=== PATIENT | female | born 1965 | race Caucasian/White ===

== ENCOUNTER 2018-12-09 23:40 | Inpatient (IN) | payer MEDICAID, OTHER ==
[~2018-12-09] VITALS: Ht 160 cm; Wt 69.1 kg
[~2018-12-09 23:40] MED LIST: ACYC200CA PO; ACYC5OIN TOP; CYCL10TA PO; FENT25PA TOP; FISH1000 PO; PERCOCET PO; PROBCAP14 PO; SILV-4 TOP; TRIA1CR80 TOP; VITA-110 PO; VITMTA PO
[2018-12-10] MEDS ORDERED: LORazepam 2 MG TAB PO PRN
[2018-12-10] MEDS ORDERED: ACETAMINOPHEN TAB 650MG DOSE (2X325MG) PO PRN
[2018-12-10] MEDS ORDERED: MAALOX 30 ML SUSP *UDC PO PRN
[2018-12-10] MEDS ORDERED: OLANZapine ORAL DISINTEGRATING TAB 5MG PO PRN
[2018-12-10] MEDS ORDERED: MOM 30ML SUSPENSION UDC PO PRN
[2018-12-10] MEDS ORDERED: TRIAMCINOLONE ACET 0.1% CREAM 15 GM TOP PRN
[2018-12-10 00:33] VITALS: BP 158/88
[2018-12-10 00:35] VITALS: BP 158/88
[2018-12-10] MEDS: LEVALBUTEROL 1.25 MG/0.5 ML CONCENTRATE NEB INH SCH ×6 (00:43→19:10)
[2018-12-10] MEDS ORDERED: TRIAMCINOLONE ACET 0.1% CREAM 80 GM TOP PRN (01:30)
[2018-12-10 06:19] VITALS: BP 141/86
[2018-12-10] MEDS: THIAMINE 100 MG TAB PO SCH ×2 (08:08→20:49)
[2018-12-10] MEDS: MULTIVITAMINS/MINERALS THERAP 1 TAB PO SCH (08:08)
[2018-12-10] MEDS: FOLIC ACID 1 MG TAB PO SCH (08:08)
[2018-12-10] MEDS: ACYCLOVIR 5% OINT 15GM TOP SCH ×2 (08:09→20:50)
[2018-12-10 12:00] VITALS: BP 136/83
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
[2018-12-10 18:00] VITALS: BP 130/85
[2018-12-10] MEDS: traZODone 50 MG TAB PO PRN (20:49)
[2018-12-10 21:26] VITALS: BP 130/85
[2018-12-11] MEDS: LEVALBUTEROL 1.25 MG/0.5 ML CONCENTRATE NEB INH SCH ×6 (04:00→20:00)
[2018-12-11 06:00] VITALS: BP 137/72
[2018-12-11] MEDS: MULTIVITAMINS/MINERALS THERAP 1 TAB PO SCH (08:26)
[2018-12-11] MEDS: ACYCLOVIR 5% OINT 15GM TOP SCH ×2 (08:26→20:24)
[2018-12-11] MEDS: FLUoxetine 10 MG CAP PO SCH (08:26)
[2018-12-11] MEDS: THIAMINE 100 MG TAB PO SCH ×2 (08:26→20:24)
[2018-12-11] MEDS: FOLIC ACID 1 MG TAB PO SCH (08:27)
[2018-12-11 10:00] VITALS: BP 132/80
[2018-12-11 10:11] VITALS: BP 132/80
--- NOTE | 2018-12-11 14:23 | MHHPE ---
DATE OF ADMISSION: 12/10/2018 CHIEF COMPLAINT: Feels stressed. SUBJECTIVE: [id number]. She is . Has two children, a son and a daughter. Son who she keeps in contact with. She is estranged from her daughter. She is admitted from the medical floor, where she had been admitted, initially to the intensive care unit (ICU). She almost after an overdose of antifreeze (ethylene glycol). She had been drinking at that time as well. Has been increasingly stressed, anxious. I had seen her on the consultation service yesterday, please refer to my dictation regarding the circumstances of the hospitalization, the background history, and mental status exam at the time. Says has been in touch with some of her family, including her son. Says her boyfriend is aware she is here, and that he is in fact coming to drop a few things. 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 Says does not think that has difficulties with alcohol, other than when she drinks. MENTAL STATUS EXAMINATION: She is neat. She is cooperative though possibly a bit guarded. She is coherent. No agitation. No psychomotor retardation. Affect is a bit broader than when I saw her yesterday. She displays no abnormal movements. She denies any active suicidal thoughts. No homicidal ideas or intents. No evidence of any psychosis. Her cognition is grossly intact. Does not appear to be internally preoccupied. Judgment and insight remain questionable. ASSESSMENT: Other specified anxiety disorder. Alcohol use disorder. Status post ethylene glycol poisoning. Has been anxious, stressed, and various factors have contributed to it, as indicated in yesterday's examination. The other concern is that she probably minimizes her difficulties. PLAN: She is admitted to inpatient psychiatric unit, placed on relevant precautions. We will look at obtained collateral information, which I suggest would be quite important, in order to obtain a more complete picture regarding the patient. She is to be started on Prozac to help address anxiety. The risks, benefits, drawbacks, abusing it, as well as alternatives, and she understands it. She will receive a consult to medicine, and we will ask her to continuing following should it be advised. She will be encouraged to participate in activities on the unit. She will be discharged with followup when she is stable. I would anticipate a 5-7 day stay. I would also recommend that she is discharged to an alcohol treatment program, in addition to seeing a therapist and psychiatrist. Further recommendations will be made depending on the clinical picture. The assessment took 30 minutes. VITAL SIGNS: Blood pressure 130/8, pulse 70, temperature 99. MTDD
[2018-12-11 18:00] VITALS: BP 122/79
[2018-12-11] MEDS: traZODone 50 MG TAB PO PRN (20:25)
[2018-12-11 21:51] VITALS: BP 122/79
[2018-12-12] MEDS: LEVALBUTEROL 1.25 MG/0.5 ML CONCENTRATE NEB INH SCH ×7 (04:00→23:34)
[2018-12-12 06:16] VITALS: BP 126/67
[2018-12-12] MEDS: MULTIVITAMINS/MINERALS THERAP 1 TAB PO SCH (09:02)
[2018-12-12] MEDS: THIAMINE 100 MG TAB PO SCH ×2 (09:02→21:31)
[2018-12-12] MEDS: FOLIC ACID 1 MG TAB PO SCH (09:02)
[2018-12-12] MEDS: FLUoxetine 10 MG CAP PO SCH (09:02)
[2018-12-12] MEDS: ACYCLOVIR 5% OINT 15GM TOP SCH ×2 (09:03→21:32)
--- NOTE | 2018-12-12 09:51 | MHIPN ---
DATE: 12/10/2018 CHIEF COMPLAINT: Says feels better. SUBJECTIVE: Seen for follow-up. Indicates feels better, had a fairly good night, says slept and was up for another few, before she started the day. Says visit with her son went well. 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 The patient would want contact with her daughter, but does not want daughter trying to "fix her." Denies any cravings for alcohol. Says has had contact with her partner on the phone. MENTAL STATUS EXAMINATION: Neat, cooperative. Less guarded. She is coherent. Affect is broader. Denies any thoughts of harming herself or anyone else. She does not display any evidence of psychosis at present. Her cognition is grossly intact. Judgment possibly improved, insight poor to fair. ASSESSMENT: Other specified anxiety disorder. Rule out major depressive disorder. Alcohol use disorder. PLAN: Continue current care, has just been started on Prozac. She is encouraged to participate in activities on the unit. I would suggest obtaining collateral information as well. She will be seeing the treatment team, as well as the psychiatrist tomorrow, and discharge planning should include her seeing a substance abuse counselor at a suitable facility. VITAL SIGNS: Blood pressure 132/80, pulse 72, temperature 98.1. Substance abuse treatment, and arranging for that, will be important upon discharge.
--- NOTE | 2018-12-12 14:41 | MHIPNPDOC ---
[facility] Progress Note Progress Note DATE OF SERVICE: 12/12/18 HISTORY: As per Dr. Collier: "CHIEF COMPLAINT: Feels stressed. SUBJECTIVE: [id number]. She is . Has two children, a son and a daughter. Son who she keeps in contact with. She is estranged from her daughter. She is admitted from the medical floor, where she had been admitted, initially to the intensive care unit (ICU). She almost after an overdose of antifreeze (ethylene glycol). She had been drinking at that time as well. Has been increasingly stressed, anxious". VITAL SIGNS: See below. NEW TEST RESULTS: See below CURRENT MEDICATIONS: See below. MENTAL STATUS EXAMINATION: Patient is a 53 year old female, who is alert, dressed in personal clothes, cooperative. Speech: Is fluent and spontaneous, normal rate, tone and volume. Language skills are good. Thought processes including: linear, coherent. Thought content: depressive thoughts about her children not making contact with her, especially her daughter and her multiple losses. Abstract reasoning, and computation: good Description of associations: good Description of abnormal or psychotic thoughts: . Judgment: improving Insight: improving Orientation: x 3 Recent and remote memory: intact Attention span and concentration: good. Language: normal. Fund of knowledge: average. Mood: anxious, sad. Affect: congruent, full, reactive, appropriate. DIAGNOSES: Other specified anxiety disorder. Rule out major depressive disorder. Alcohol use disorder. ASSESSMENT: Patient is sad because carisa has lost mostly all her family through and through separation, she from her and her daughter doesn't get in touch with her because she is her father's baby and he gives her all sort of material things. 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 She says she took the antifreeze in an impulse, she was taking the garbage out, went in, was watching "a stupid show" where they were talking about it and she went ahead and took it. she says that there's alcoholism in her genes because she has Turkmen blood, and she knows they are presiposed to alcohol use. she has been feeling lonely. MANAGEMENT PLAN: Will increase fluoxetine to 20 mgs Po daily TIME SPENT: 20 minutes. Vital Signs Vital Signs Date Time Temp Pulse Resp B/P (MAP) Pulse Ox O2 Delivery O2 Flow Rate FiO2 12/12/18 06:16 98.1 62 14 126/67 (86) Room Air Current Medications Current Medications Acetaminophen (Tylenol Tab) 650 mg Q6HP PRN PO HEADACHE or DISCOMFORT; Start 12/10/18 at 00:00 Acyclovir (Zovirax) 1 dose BID TOP Last administered on 12/12/18at 09:03; Start 12/10/18 at 09:00 Al Hydrox/Mg Hydrox/Simethicone (Mylanta) 30 ml Q4HP PRN PO HEARTBURN/INDIGESTION; Start 12/10/18 at 00:00 Fluoxetine HCl (PROzac) 10 mg DAILY PO Last administered on 12/12/18at 09:02; Start 12/11/18 at 09:00 Folic Acid (Folic Acid) 1 mg DAILY PO Last administered on 12/12/18at 09:02; Start 12/10/18 at 09:00 Levalbuterol HCl (Xopenex Neb) 1.25 mg RQ4H INH ; Start 12/10/18 at 00:00 Lorazepam (Ativan) 2 mg ASDIRECTED PRN PO SEE PROTOCOL; Start 12/10/18 at 00:00 Magnesium Hydroxide (Milk Of Magnesia) 30 ml DAILYPRN PRN PO CONSTIPATION; Start 12/10/18 at 00:00 Multivitamins (Theragram-M) 1 tab DAILY PO Last administered on 12/12/18at 09:02; Start 12/10/18 at 09:00 Olanzapine (ZyPREXA ZYDIS) 5 mg Q6HP PRN PO ANXIETY/AGITATION; Start 12/10/18 at 00:00 Thiamine HCl (Thiamine HCl) 100 mg BID PO Last administered on 12/12/18at 09:02; Start 12/10/18 at 09:00; Stop 12/13/18 at 08:59 Trazodone HCl (Desyrel) 50 mg QHSP PRN PO INSOMNIA Last administered on 12/11/18at 20:25; Start 12/10/18 at 00:00 Triamcinolone Acetonide (Kenalog 0.1% Cream) 1 dose BIDP PRN TOP ITCHING; Start 12/10/18 at 00:00; Stop 12/10/18 at 01:25; Status DC Triamcinolone Acetonide (Kenalog 0.1% Cream) 1 dose BIDP PRN TOP ITCHING; Start 12/10/18 at 01:30 Allergies Coded Allergies: No Known Allergies (Verified , 12/06/18) BASILIO QUINTANILLA MD Dec 12, 2018 14:41
[2018-12-12 18:00] VITALS: BP 137/84
[2018-12-12 20:00] VITALS: BP 136/74
[2018-12-12] MEDS: traZODone 50 MG TAB PO PRN (21:32)
[2018-12-13] MEDS: LEVALBUTEROL 1.25 MG/0.5 ML CONCENTRATE NEB INH SCH ×2 (04:00→07:26)
[2018-12-13 06:39] VITALS: BP 129/64
[2018-12-13] MEDS: ACYCLOVIR 5% OINT 15GM TOP SCH (08:22)
[2018-12-13] MEDS ORDERED: FLUoxetine 20 MG CAP PO SCH (09:00)
--- NOTE | 2018-12-13 09:03 | HPE ---
DATE OF ADMISSION: 12/10/2018 HISTORY OF PRESENT ILLNESS: Please refer to the psychiatric history and evaluation for further details on this admission. This examination and history is intended for medical issues which may need treatment, followup or consultation on this 53-year-old female who was transferred from the intensive care unit (ICU) after having been treated for taking an overdose of antifreeze 50/50 mixture. She was intubated and subsequently extubated. She is doing well. She had a nephrology consult. Did not require dialysis. She was given fomepizole in the emergency room as a recommendation of Poison Control. Laboratory studies are stable and patient has been deemed medically stable. Discharged and admitted to inpatient mental health unit. ALLERGIES: No known drug allergies SOCIAL HISTORY: She is . ETOH - She used to drink heavily. She states that 3 years ago, she did cut back but had a drink the night of taking the antifreeze. Smokes - None. Recreational drug use - None. PAST MEDICAL HISTORY: Anxiety. Depression. She had a 03/14. She had a PAST SURGICAL HISTORY: History of breast augmentation 2012. Total hysterectomy July 2009. Anterior cruciate ligament (ACL) and repair 08/05/2017. FAMILY HISTORY: Father and mother is unknown by the patient. Father is decreased. Mother is . REVIEW OF SYSTEMS: 10-systems review was done and was unremarkable except for a healing cold sore on her lip for which she is on acyclovir. PHYSICAL EXAMINATION: 53 y cooperative female in no acute distress. Height 63, weight 67.3, blood pressure 132/80, pulse 71, temperature 98.1, respirations 16. The patient is alert and oriented times three. Pupils equal and reactive to light. Extraocular movements intact. Cornea and sclera clear. Conjunctiva normal. No facial asymmetry. Pharynx, tongue, and gums pink and moist. Small drying cold sore in her lip. Tongue is midline. Neck is supple, without lymphadenopathy. No thyromegaly. No goiter. Carotids 2+ without bruit. Chest clear to auscultation, without wheeze or retraction. Heart is regular. Abdomen benign. Bowel sounds positive. /Rectal: Not done. Extremities show equal strength. Full range of motion. no cyanosis, clubbing or edema. Peripheral pulses equal and palpable bilaterally. Skin is warm and dry. IMPRESSION AND PLAN: 1. Psychiatric: Plan per psychiatry. 2. Continue on acyclovir for cold sore. 3. No other medical issues. (BLANKS DUE TO MUFFLED IN AUDIBLE DICTATION)
[2018-12-13] MEDS ORDERED: LEVALBUTEROL 1.25 MG/0.5 ML CONCENTRATE NEB INH PRN (10:00)
[2018-12-13] MEDS ORDERED: LEVA12INH INH (12:04)
[2018-12-13] MEDS ORDERED: TRAZO50TA PO (12:04)
[2018-12-13] MEDS ORDERED: FLUO20CA19 PO (12:04)
--- NOTE | 2019-01-02 21:52 | MHDSPDOC ---
[facility] Discharge Summary Discharge Summary DATE OF ADMISSION: Dec 10, 2018 at 00:38 DATE OF DISCHARGE: Dec 13, 2018 at 14:45 DISCHARGE DIAGNOSES: Other specified anxiety disorder. Major depressive disorder, in remission Alcohol use disorder. R/O substance induced depression REASON FOR ADMISSION: As per Dr. Collier: "[id number]. She is . Has two children, a son and a daughter. Son who she keeps in contact with. She is estranged from her daughter. She is admitted from the medical floor, where she had been admitted, initially to the intensive care unit (ICU). She almost after an overdose of antifreeze (ethylene glycol). She had been drinking at that time as well. Has been increasingly stressed, anxious." CONSULTANTS INVOLVED: None TREATMENT AND PROGRESS ON THE UNIT : Upon evaluation the patient admitted that she has been depressed and that she was not feeling well prior to her admission. 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 She mentioned feeling very lonely, having lost several relatives and friends through and separations. She from her and she resents that one of her daughters doesn't get in touch with her but she gets in touch with her father and she says this is secondary to the fact that her father caters to all her wishes. 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 She said that prior to taking the antifreeze that brought her to the hospital, she had been drinking, she took the garbage out and went through the the garage were the antifreeze was. She went back inside of the house and she went to watch TV where she was watching a TV show and according to what she said, "it was a stupid show", where they were talking about different ways to commit suicide, including antifreeze poisoning. At that moment she went ahead and took the antifreeze. She said that she felt very embarrassed, ashamed about her recent impulsive action (suicide attempt with antifreeze). Patient reported that she was not suicidal, not homicidal and not psychotic at that moment. She requested to be discharged because she was getting more anxious at the inpatient mental health unit because she had to take care of her business and she couldn't do it while at the hospital. HOSPITAL COURSE: As above DISCHARGE ASSESSMENT: Patient was not homicidal, not suicidal and not psychotic at the time of her discharge MENTAL STATUS EXAMINATION ON DISCHARGE: Patient is a 53 year old female, who is alert, dressed in personal clothes, cooperative. Speech: Is fluent and spontaneous, normal rate, tone and volume. Language skills are good. Thought processes including: linear, coherent. Thought content: depressive thoughts about her children not making contact with her, especially her daughter and her multiple losses. She was goal-directed, goal orientated, she wanted to be successful and she says she was going to work hard in in her business to accomplish her goals. Abstract reasoning, and computation: good Description of associations: good Description of abnormal or psychotic thoughts: Denied homicidal ideation, denied suicidal ideation, denied auditory and visual hallucinations and denied thought delusions. Judgment: improving Insight: improving Orientation: x 3 Recent and remote memory: intact Attention span and concentration: good. Language: normal. Fund of knowledge: average. Mood: Less anxious and less depressed Affect: congruent, full, reactive, appropriate. MEDICATIONS ON DISCHARGE: Scheduled Acyclovir (Acyclovir) 5 % Oin, 0 DOSE TOP BID for 10 Days, #1 Fluoxetine Hcl (Fluoxetine HCl) 20 Mg Cap, 20 MG PO DAILY for depression , #7 Scheduled PRN Levalbuterol Hydrochloride (Xopenex Concentrate) 1.25 Mg/0.5 Ml Neb, 1.25 MG INH Q4HP PRN for SOB/WHEEZING, #1 Trazodone HCl (Trazodone HCl) 50 Mg Tab, 50 MG PO QHSP PRN for INSOMNIA, #7 Triamcinolone Acet (Triamcinolone Acetonide 0.1% Crm) 1 Dose/80 Gm Cream, 0 DOSE TOP BIDP PRN for ITCHING for 5 Days, #1 PLAN/FOLLOWUP ARRANGEMENTS: Follow Up Care Education Label * Medical * Medical Follow Up DR. LOAN COLLIER * Established With This Provider Yes * Date Dec 14, 2018 * Time 08:45 * Follow Up Care Education Label * Mental Health Appt 1 * Mental Health [facility] * Established With This Provider No NEW PATIENT APPOINTMENT * Therapist ROVERTO OLIVARES * Date Dec 16, 2018 * Time 11:00 * Follow Up Care Education Label * Smoking Cessation * Mental Health [facility] * Smoking Cessation [facility] Smoking Cessation * Additional information see attached form The amount of time spent in the coordination of care for this patient was approximately 30 minutes. Medications Scheduled Acyclovir (Acyclovir) 5 % Oin, 0 DOSE TOP BID for 10 Days, #1 Fluoxetine Hcl (Fluoxetine HCl) 20 Mg Cap, 20 MG PO DAILY for depression , #7 Scheduled PRN Levalbuterol Hydrochloride (Xopenex Concentrate) 1.25 Mg/0.5 Ml Neb, 1.25 MG INH Q4HP PRN for SOB/WHEEZING, #1 Trazodone HCl (Trazodone HCl) 50 Mg Tab, 50 MG PO QHSP PRN for INSOMNIA, #7 Triamcinolone Acet (Triamcinolone Acetonide 0.1% Crm) 1 Dose/80 Gm Cream, 0 DOSE TOP BIDP PRN for ITCHING for 5 Days, #1 Allergies Coded Allergies: No Known Allergies (Verified , 12/06/18) BASILIO QUINTANILLA MD Jan 02, 2019 21:36
== END 2018-12-13 14:45 | disposition home or self-care (01) | DRG 756 ==
LOC: M PSY 12-10 00:38
PROVIDERS: ADMIT Psychiatry & Neurology Psychiatry; ATTEND Psychiatry & Neurology Psychiatry
DX: F41.8 Other specified anxiety disorders (principal); F10.14 Alcohol abuse with alcohol-induced mood disorder; F32.5 Major depressive disorder, single episode, in full remission; Z91.5 Personal history of self-harm; Z62.810 Personal history of physical and sexual abuse in childhood; Z63.4 Disappearance and death of family member; Z62.820 Parent-biological child conflict

== ENCOUNTER → 2019-01-03 | Outpatient (CLI) | payer OTHER, MEDICAID ==
[~2019-01-03] MED LIST changes: +FLUO20CA19 PO; +LEVA12INH INH; +TRAZO50TA PO
[2019-01-03 12:21] LABS: HEMATOCRIT 42.4 % (36.0-47.0); HEMOGLOBIN 14.4 g/dl (12.0-15.5); MEAN CORPUSCULAR HEMOGLOBIN 30.2 pg (27.0-33.0); MEAN CORPUSCULAR VOLUME 88.9 fl (80.0-96.0); PLATELET COUNT, AUTOMATED 295 10^3/uL (150-450); RED BLOOD COUNT 4.77 10^6/uL (4.00-5.40); WHITE BLOOD COUNT 5.5 10^3/uL (4.0-10.0)
[2019-01-03 12:55] LABS: HEMOGLOBIN A1c 5.5 %
[2019-01-03 13:00] LABS: ALT/SGPT 26 U/L (12-78); BILIRUBIN,TOTAL 0.6 MG/DL (0.2-1.0); BLOOD UREA NITROGEN 16 MG/DL (7-18); CALCIUM LEVEL 9.1 MG/DL (8.5-10.1); CARBON DIOXIDE LEVEL 26 MEQ/L (21-32); CHLORIDE LEVEL 108 MEQ/L (98-107); CHOLESTEROL LEVEL 263 MG/DL (<200); CHOLESTEROL RISK RATIO 2.827 (<5); CREATININE FOR GFR 0.77 MG/DL (0.55-1.30); GLOMERULAR FILTRATION RATE > 60.0 (>51); GLUCOSE, FASTING 84 MG/DL (70-100); HDL CHOLESTEROL 93 MG/DL (>40); LDL CHOLESTEROL 155 MG/DL (<100); NON-HDL-C 170 MG/DL; SODIUM LEVEL 140 MEQ/L (136-145); TOTAL 25(OH) VITAMIN D 44.8 NG/ML (30.0-100.0); TOTAL PROTEIN 6.8 GM/DL (6.4-8.2); TRIGLYCERIDES LEVEL 77 MG/DL (<150)
== END ==
LOC: M LAB 11:41
PROVIDERS: ATTEND Family Medicine
DX: D64.9 Anemia, unspecified (principal); R53.83 Other fatigue; E03.9 Hypothyroidism, unspecified

== ENCOUNTER 2019-06-06 14:50 | Inpatient (IN) | payer OTHER, MEDICAID ==
[~2019-06-06] VITALS: Ht 165.1 cm; Wt 73.5 kg
[~2019-06-06 14:50] MED LIST changes: +ACYC1CAP20 PO; -ACYC200CA PO; +FENT25DI33 TOP; -FENT25PA TOP; +TRAZ1TAB10 PO; -TRAZO50TA PO
[2019-06-06 15:26] LABS: BASO % 0.2 % (0.0-1.0); HEMATOCRIT 43.4 % (36.0-47.0); HEMOGLOBIN 15.2 g/dl (12.0-15.5); LYMPH # 0.6 10^3/uL (1.5-4.5); LYMPH % 2.6 % (24.0-44.0); MEAN CORPUSCULAR HEMOGLOBIN 30.5 pg (27.0-33.0); MEAN CORPUSCULAR VOLUME 87.1 fl (80.0-96.0); MONO # 0.9 10^3/uL (0.0-0.8); MONO % 4.1 % (0.0-5.0); NEUTROPHILS # 19.2 10^3/uL (1.8-7.7); NEUTROPHILS % 92.4 % (36.0-66.0); PLATELET COUNT, AUTOMATED 302 10^3/uL (150-450); RED BLOOD COUNT 4.98 10^6/uL (4.00-5.40); WHITE BLOOD COUNT 20.8 10^3/uL (4.0-10.0)
[2019-06-06 15:45] LABS: AMPHETAMINES LEVEL URINE NEGATIVE (NEGATIVE); BARBITURATES URINE NEGATIVE (NEGATIVE); BENZODIAZEPINES URINE NEGATIVE (NEGATIVE); CANNABINOIDS URINE NEGATIVE (NEGATIVE); COCAINE METABOLITE URINE NEGATIVE (NEGATIVE); METHADONE URINE NEGATIVE (NEGATIVE); OPIATES URINE NEGATIVE (NEGATIVE); PHENCYCLIDINE URINE NEGATIVE (NEGATIVE)
[2019-06-06 15:56] LABS: ACETAMINOPHEN LEVEL < 2.0 UG/ML (10.0-30.0); ALBUMIN 4.6 GM/DL (3.2-5.2); ALT/SGPT 36 U/L (12-78); BILIRUBIN,DIRECT 0.1 MG/DL (0.0-0.2); BILIRUBIN,TOTAL 0.4 MG/DL (0.2-1.0); BLOOD UREA NITROGEN 19 MG/DL (7-18); CALCIUM LEVEL 8.3 MG/DL (8.5-10.1); CARBON DIOXIDE LEVEL 17 MEQ/L (21-32); CHLORIDE LEVEL 104 MEQ/L (98-107); CPK CREATINE PHOSPHOKINASE 388 U/L (26-192); ETHYL ALCOHOL (ETHANOL) < 0.003 % (0.000-0.010); GLUCOSE, FASTING 134 MG/DL (70-100); POTASSIUM SERUM 3.6 MEQ/L (3.5-5.1); SALICYLATE LEVEL < 1.7 MG/DL (5.0-30.0); SODIUM LEVEL 138 MEQ/L (136-145); TOTAL PROTEIN 7.8 GM/DL (6.4-8.2)
[2019-06-06] MEDS ORDERED: NS 1,000 ML IV SCH (16:06)
[2019-06-06] MEDS ORDERED: ONDANSETRON 4MG/2ML VIAL (J2405) IV ONE (16:15)
[2019-06-06 16:39] LABS: CK-MB VALUE MASS 23.7 NG/ML (<3.6); MB/CK RELATIVE INDEX 6.11 (< OR =4); TROPONIN I 3.87 NG/ML (< 0.10)
[2019-06-06] MEDS ORDERED: THIAMINE HCL 200 MG/2 ML VIAL (J3411) IV ONE (16:45)
[2019-06-06 16:58] LABS: LITHIUM LEVEL < 0.20 MEQ/L (0.60-1.20)
[2019-06-06 16:58] LABS: VENOUS HCO3 17.3 MEQ/L (23.0-27.0); VENOUS O2 SATURATION 79.6 % (60.0-80.0); VENOUS PH 7.352 UNITS (7.330-7.430); VENOUS STANDARD HCO3 18.5 MEQ/L; VENOUS TOTAL CO2 18.3 MEQ/L (24.0-28.0)
--- NOTE | 2019-06-06 17:10 | REP ---
Head CT without contrast: History: Altered mental status. Comparison study: March 06, [address] findings: Bone window settings demonstrate an intact bony calvarium. There is no evidence of skull fracture or incidental bony calvarial lesion. The visualized paranasal sinuses appear clear. No intraorbital abnormality is seen. On soft tissue window setting images; the lateral, third, and fourth ventricles are normal in size and position. Hamilton-white differentiation pattern is normal above and below the tentorium. There are is no evidence of intracranial hemorrhage. No mass, edema, infarction, or midline shift is seen. No extra-axial fluid collection is appreciated. Impression: Negative noncontrast head CT. Electronically Signed by Gilberto Motta MD 06/06/2019 05:02 P
[2019-06-06 17:19] LABS: CALCIUM LEVEL 7.9 MG/DL (8.5-10.1); CREATININE FOR GFR 1.47 MG/DL (0.55-1.30); GLOMERULAR FILTRATION RATE 39.7 (>51); POTASSIUM SERUM 3.5 MEQ/L (3.5-5.1)
--- NOTE | 2019-06-06 17:43 | REP ---
CHEST, SINGLE VIEW: Single view of the chest is performed and compared to prior study of 12/06/2018. Mildly prominent interstitial markings in the lung bases are stable with no acute infiltrate. Heart is normal in size. Mediastinal silhouette is unchanged. IMPRESSION: Mild stable chronic findings without acute infiltrate. Electronically Signed by Deandre Hamilton MD 06/09/2019 10:04 A
[2019-06-06] MEDS ORDERED: NS 1,000 ML IV ONE (18:00)
[2019-06-06] MEDS ORDERED: VITAD1000T PO (18:45)
[2019-06-06] MEDS ORDERED: VITATAB73 PO (18:45)
[2019-06-06] MEDS ORDERED: VITA100018 PO (18:45)
[2019-06-06 19:46] LABS: CK-MB VALUE MASS 22.4 NG/ML (<3.6); MB/CK RELATIVE INDEX 5.48 (< OR =4); TROPONIN I 3.56 NG/ML (< 0.10)
[2019-06-06] MEDS ORDERED: IBUP-1022 PO (20:13)
[2019-06-06] MEDS ORDERED: PROT1TAB2 PO (20:13)
[2019-06-06] MEDS ORDERED: LORazepam 2 MG TAB PO PRN (22:45)
[2019-06-06] MEDS ORDERED: ONDANSETRON 4MG/2ML VIAL (J2405) IV PRN (22:45)
--- NOTE | 2019-06-06 22:49 | HPEPDOC ---
General Date of Admission Jun 06, 2019 at 22:15 Date of Service: Jun 06, 2019 Chief Complaint The patient is a 53-year-old female admitted with a reason for visit of Overdose. History of Present Illness 53f with hx of depression, etoh, previous suicide attempts (most recently drinking antifreeze) who presents for an apparent overdose. 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 She reports yesterday she drank 12 beers, a bottle of wine, and took a bottle alleve pm. She has been nauseous since and vomitted today prompting her to come to the ED. She reports she hasnt been drinking much recently prior to yesterday but has had etoh withdrawal in the past. She denies chest pain and sob. She admits wanting to kill herself yesterday but states today she does not want to harm herself A full ROS was performed and negative except as documented above Home Medications Scheduled Cyanocobalamin (Vitamin B-12) (Vitamin B-12) 1,000 Mcg Tablet, 1,000 MCG PO DAILY, (Reported) Vitamin B Complex (Vitamin B Complex) 1 Each Tablet, 1 TAB PO DAILY, (Reported) Vitamin D (Vitamin D3) 1,000 Unit Tablet, 1,000 UNITS PO DAILY, (Reported) Allergies Coded Allergies: No Known Allergies (Verified , 12/06/18) Family History Significant Family History: No pertinent family hx Social History * Smoker: current smoker Alcohol: heavy Drugs: denies Psychosocial History: Decreased mood, Prior suicide attempt A-FIB/CHADSVASC A-FIB History Current/History of A-Fib/PAF?: No Current PO Anticoag Therapy: No Age/Risk Factor Scoring CHADSVASC: CHADSVASC Response (Comments) Value Age Risk Factor Age < 65 years old 0 Gender Risk Factor Female 1 Hx of CHF No 0 Hx of HTN No 0 Hx of Stroke/TIA/or VTE No 0 Hx of Diabetes No 0 Hx of Vascular Disease No 0 Total 1 Physical Examination General Exam: Positive: Alert, Moderate Distress Eye Exam: Positive: PERRLA, Conjunctiva & lids normal, EOMI; Negative: Sclera icteric ENT Exam: Positive: Atraumatic, Mucous membr. moist/pink, Pharynx Normal Neck Exam: Positive: Supple; Negative: JVD, thyromegaly Chest Exam: Positive: Clear to auscultation, Normal air movement Heart Exam: Positive: Tachycardic, Regular Rhythm, Normal S1, Normal S2; Negative: Murmurs, Rubs Telemetry: Positive: Sinus, Tachycardia Abdomen Exam: Positive: Normal bowel sounds, Soft; Negative: Tenderness, Hepatospenomegaly Extremity Exam: Positive: Normal pulses; Negative: Clubbing, Cyanosis, Edema Skin Exam: Positive: Nl turgor and temperature; Negative: Breakdown, Lesion Neuro Exam: Positive: Normal Gait, Normal Speech, Cranial Nerves 3-12 NL, Reflexes 2+, Other (tremor) Psych Exam: Positive: Mental status NL, Memory Intact, Oriented x 3 Vital Signs Vital Signs Date Time Temp Pulse Resp B/P (MAP) Pulse Ox O2 Delivery O2 Flow Rate FiO2 06/06/19 22:34 100 16 93 06/06/19 20:45 122/76 (91) 06/06/19 15:17 98.4 Room Air Laboratory Data Labs 24H Laboratory Tests 2 06/06/19 15:07: Urine Amphetamines Screen NEGATIVE, Urine Benzodiazepines Screen NEGATIVE, Urine Opiates Screen NEGATIVE, Urine Methadone Screen NEGATIVE, Urine Barbiturates Screen NEGATIVE, Urine Phencyclidine Screen NEGATIVE, Urine Cocaine Metabolite Screen NEGATIVE, Urine Cannabinoids Screen NEGATIVE 06/06/19 15:13: Immature Granulocyte % (Auto) 0.7, White Blood Count 20.8H, Red Blood Count 4.98, Hemoglobin 15.2, Hematocrit 43.4, Mean Corpuscular Volume 87.1, Mean Corpuscular Hemoglobin 30.5, Mean Corpuscular Hemoglobin Concent 35.0, Red Cell Distribution Width 12.9, Platelet Count 302, Neutrophils (%) (Auto) 92.4H, Lymphocytes (%) (Auto) 2.6L, Monocytes (%) (Auto) 4.1, Eosinophils (%) (Auto) 0.0, Basophils (%) (Auto) 0.2, Neutrophils # (Auto) 19.2H, Lymphocytes # (Auto) 0.6L, Monocytes # (Auto) 0.9H, Eosinophils # (Auto) 0.0, Basophils # (Auto) 0.0, Nucleated Red Blood Cells % (auto) 0.0, Anion Gap 17H, Glomerular Filtration Rate 36.0L, Calcium Level 8.3L, Aspartate Amino Transf (AST/SGOT) 36, Alanine A minotransferase (ALT/SGPT) 36, Alkaline Phosphatase 75, Total Bilirubin 0.4, Direct Bilirubin 0.1, Total Creatine Kinase 388H, Creatine Kinase MB 23.7H, Creatine Kinase MB Relative Index 6.11H, Troponin I 3.87*H, Total Protein 7.8, Albumin 4.6, Albumin/Globulin Ratio 1.44, Thyroid Stimulating Hormone (TSH) 0.750, Salicylates Level < 1.7L, Acetaminophen Level < 2.0L, [place] Level < 0.20L, Ethyl Alcohol Level < 0.003 06/06/19 16:41: Anion Gap 13, Glomerular Filtration Rate 39.7L, Calcium Level 7.9L, Blood Gas Bicarbonate Standard 18.5, Venous Blood pH 7.352, Venous Blood Partial Pressure CO2 32.0L, Venous Blood Partial Pressure O2 43.0, Venous Blood Total Carbon Dioxide 18.3L, Venous Blood HCO3 17.3L, Venous Blood Oxygen Saturation 79.6, Venous Blood Base Excess -7.0L, Lactic Acid Level 4.0*H, Blood Urea Nitrogen 20H, Creatinine 1.47H, Sodium Level 139, Potassium Level 3.5, Chloride Level 105, Carbon Dioxide Level 21 06/06/19 19:02: Total Creatine Kinase 409H, Creatine Kinase MB 22.4H, Creatine Kinase MB Relative Index 5.48H, Troponin I 3.56*H 06/06/19 21:03: Lactic Acid Followup at 4 Hours 1.6 CBC/BMP Laboratory Tests 06/06/19 15:13 Red Blood Count 4.98, Mean Corpuscular Volume 87.1, Mean Corpuscular Hemoglobin 30.5, Mean Corpuscular Hemoglobin Concent 35.0, Red Cell Distribution Width 12.9, Neutrophils (%) (Auto) 92.4 H, Lymphocytes (%) (Auto) 2.6 L, Monocytes (%) (Auto) 4.1, Eosinophils (%) (Auto) 0.0, Basophils (%) (Auto) 0.2, Neutrophils # (Auto) 19.2 H, Lymphocytes # (Auto) 0.6 L, Monocytes # (Auto) 0.9 H, Eosinophils # (Auto) 0.0, Basophils # (Auto) 0.0 06/06/19 16:41 Calcium Level 7.9 L Assessment/Plan 53f p/w an apparent overdose apparent overdose of nsaids and diphenhydramine would not appear on our tox screen tox screen however is negative for other substances that we do screen for discussed with poison control who suggests n/v, acidosis, and dale is from naproxen and tachycardia likely from diphenhydramine they also at this point only recommend a 6 hour observation which has already been accomplished in the ED However given the leukocytosis, dale, resolved lactic acidosis, and abnl ekg with elevated troponins I will be admitting to PCU psych to be consulted in am 1:1 suicide observation Leukocytosis/lactic acidosis possibly reactive continue hydration check UA recheck in am cardiac ekg with diffuse t wave inversions troponin elevated but downtrending no cardiac symptoms will check echocardiogram in am ER discussed with cardiology Dr Jha dale suspect due to nsaids continue hydration check ua protein, lytes Plan / VTE VTE Prophylaxis Ordered?: Yes SANDY HERRERA MD Jun 06, 2019 22:49
[2019-06-06] MEDS: LR 1,000 ML IV SCH (23:12)
[2019-06-06] MEDS: FAMOTIDINE IV BAG 20 MG in APPROPRIATE DILUENT 1 EA IV SCH (23:16)
[2019-06-07] VITALS (7 sets, daily range): BP systolic 98–121; BP diastolic 59–72
--- NOTE | 2019-06-07 03:37 | ECGEPIP ---
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
--- NOTE | 2019-06-07 03:39 | ECGEPIP ---
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
[2019-06-07 06:12] LABS: HEMATOCRIT 37.5 % (36.0-47.0); HEMOGLOBIN 12.7 g/dl (12.0-15.5); MEAN CORPUSCULAR HEMOGLOBIN 30.5 pg (27.0-33.0); MEAN CORPUSCULAR HGB CONC 33.9 g/dl (32.0-36.5); MEAN CORPUSCULAR VOLUME 90.1 fl (80.0-96.0); PLATELET COUNT, AUTOMATED 220 10^3/uL (150-450); RED BLOOD COUNT 4.16 10^6/uL (4.00-5.40); WHITE BLOOD COUNT 10.9 10^3/uL (4.0-10.0)
[2019-06-07] MEDS: LR 1,000 ML IV SCH ×2 (06:29→15:49)
[2019-06-07 06:49] LABS: ALBUMIN 3.2 GM/DL (3.2-5.2); BILIRUBIN,TOTAL 0.4 MG/DL (0.2-1.0); CALCIUM LEVEL 7.1 MG/DL (8.5-10.1); CREATININE FOR GFR 1.24 MG/DL (0.55-1.30); GLOMERULAR FILTRATION RATE 48.4 (>51); POTASSIUM SERUM 3.1 MEQ/L (3.5-5.1); TROPONIN I 2.66 NG/ML (< 0.10)
[2019-06-07 07:48] LABS: SODIUM,RANDOM URINE 47 MEQ/L
[2019-06-07 07:55] LABS: CREATININE,RANDOM URINE 48.5 MG/DL; TOTAL PROTEIN,RANDOM URINE 34.9 MG/DL (0.0-12.0)
[2019-06-07] MEDS ORDERED: POTASSIUM CHLORIDE 10 MEQ SR TABLET PO ONE (08:00)
[2019-06-07] MEDS: MULTIVITAMINS/MINERALS THERAP 1 TAB PO SCH (08:46)
[2019-06-07] MEDS: FOLIC ACID 1 MG TAB PO SCH (08:46)
[2019-06-07] MEDS: THIAMINE 100 MG TAB PO SCH ×2 (08:46→20:21)
[2019-06-07] MEDS: HEPARIN SOD (PORCINE) 5000 UNITS/ML VIAL SC SCH ×2 (08:47→20:22)
[2019-06-07] MEDS: FAMOTIDINE IV BAG 20 MG in APPROPRIATE DILUENT 1 EA IV SCH ×2 (11:00→22:52)
--- NOTE | 2019-06-07 11:36 | IPNPDOC ---
Date Seen The patient was seen on 06/07/19. Progress Note SUBJECTIVE: 53 Y female, history of depression and suicidal attempt in the past admitted for drug overdose and suicidal attempt again no events overnight Review of systems no fever no chills no GODINEZ no chest pain no abdominal pain no diarrhea OBJECTIVE PHYSICAL EXAMINATION: VITAL SIGNS: Please see below. GENERAL: AA Ox3, not in acute distress, sitting in the bed and eating her breakfast; 1 to 1 sitter at bedside HEENT: Atraumatic CARDIOVASCULAR: S1S2, regular, no murmur RESPIRATORY: clear, no wheezing, no rales ABDOMINAL: soft BS positive, non tender EXTREMITIES: non edema NEUROLOGICAL: non focal PSYCHOLOGICAL: depressed but no acute psychosis LABORATORY DATA, IMAGING STUDIES, MICROBIOLOGY: Please see below. Echocardiogram: pending ASSESSMENT AND PLAN: 1. Depression and suicidal attempt with drug overdose (nsaids and diphenhydramine) will continue supportive care will continue 1 to 1 sitter I called psych consult this AM 2. Elevated troponin, she does not have risk factors for CAD, no chest pain consulted Braider Setter in ER and Dr Jha did not recommend for cardiac cath per admission notes now trending down; could be related to stress induced cardiomyopathy 3. leukocytosis/lactic acidosis, No evidence of infection and will continue to monitor 4. acute renal failure, will continue IVF and follow Cr in AM VS, I&O, 24H, Anand Vital Signs/I&O Vital Signs Date Time Temp Pulse Resp B/P (MAP) Pulse Ox O2 Delivery O2 Flow Rate FiO2 06/07/19 08:11 99.0 96 18 133/70 (91) 98 Room Air 06/07/19 06:00 1.0 I&O- Last 24 Hours up to 6 AM 06/07/19 06:00 Intake Total 1000 ml Balance 1000 ml Laboratory Data 24H LABS Laboratory Tests 2 06/06/19 15:07: Urine Amphetamines Screen NEGATIVE, Urine Benzodiazepines Screen NEGATIVE, Urine Opiates Screen NEGATIVE, Urine Methadone Screen NEGATIVE, Urine Barbiturates Screen NEGATIVE, Urine Phencyclidine Screen NEGATIVE, Urine Cocaine Metabolite Screen NEGATIVE, Urine Cannabinoids Screen NEGATIVE 06/06/19 15:13: Immature Granulocyte % (Auto) 0.7, White Blood Count 20.8H, Red Blood Count 4.98, Hemoglobin 15.2, Hematocrit 43.4, Mean Corpuscular Volume 87.1, Mean Corpuscular Hemoglobin 30.5, Mean Corpuscular Hemoglobin Concent 35.0, Red Cell Distribution Width 12.9, Platelet Count 302, Neutrophils (%) (Auto) 92.4H, Lymphocytes (%) (Auto) 2.6L, Monocytes (%) (Auto) 4.1, Eosinophils (%) (Auto) 0.0, Basophils (%) (Auto) 0.2, Neutrophils # (Auto) 19.2H, Lymphocytes # (Auto) 0.6L, Monocytes # (Auto) 0.9H, Eosinophils # (Auto) 0.0, Basophils # (Auto) 0.0, Nucleated Red Blood Cells % (auto) 0.0, Anion Gap 17H, Glomerular Filtration Rate 36.0L, Calcium Level 8.3L, Aspartate Amino Transf (AST/SGOT) 36, Alanine Aminotransferase (ALT/SGPT) 36, Alkaline Phosphatase 75, Total Bilirubin 0.4, Direct Bilirubin 0.1, Total Creatine Kinase 388H, Creatine Kinase MB 23.7H, Creatine Kinase MB Relative Index 6.11H, Troponin I 3.87*H, Total Protein 7.8, Albumin 4.6, Albumin/Globulin Ratio 1.44, Thyroid Stimulating Hormone (TSH) 0.750, Salicylates Level < 1.7L, Acetaminophen Level < 2.0L, [place] Level < 0.20L, Ethyl Alcohol Level < 0.003 06/06/19 16:41: Anion Gap 13, Glomerular Filtration Rate 39.7L, Calcium Level 7.9L, Blood Gas Bicarbonate Standard 18.5, Venous Blood pH 7.352, Venous Blood Partial Pressure CO2 32.0L, Venous Blood Partial Pressure O2 43.0, Venous Blood Total Carbon Dioxide 18.3L, Venous Blood HCO3 17.3L, Venous Blood Oxygen Saturation 79.6, Venous Blood Base Excess -7.0L, Lactic Acid Level 4.0*H, Blood Urea Nitrogen 20H, Creatinine 1.47H, Sodium Level 139, Potassium Level 3.5, Chloride Level 105, Carbon Dioxide Level 21 06/06/19 19:02: Total Creatine Kinase 409H, Creatine Kinase MB 22.4H, Creatine Kinase MB Relative Index 5.48H, Troponin I 3.56*H 06/06/19 21:03: Lactic Acid Followup at 4 Hours 1.6 06/07/19 05:53: Nucleated Red Blood Cells % (auto) 0.0, Anion Gap 10, Glomerular Filtration Rate 48.4L, Blood Urea Nitrogen 19H, Creatinine 1.24, Sodium Level 141, Potassium Level 3.1L, Chloride Level 111H, Carbon Dioxide Level 20L, Calcium Level 7.1L, Aspartate Amino Transf (AST/SGOT) 32, Alanine Aminotransferase (ALT/SGPT) 27, Alkaline Phosphatase 53, Total Bilirubin 0.4, Total Protein 6.0#L, Albumin 3.2#, Troponin I 2.66#*H, Albumin/Globulin Ratio 1.14 06/07/19 07:14: Urine Color YELLOW, Urine Appearance CLOUDYH, Urine pH 5.0, Urine Specific [place] 1.010, Urine Protein 1+H, Urine Glucose (UA) NEGATIVE, Urine Ketones NEGATIVE, Urine Blood 1+H, Urine Nitrite NEGATIVE, Urine Bilirubin NEGATIVE, [place] ne Urobilinogen 0.2, Urine Leukocyte Esterase 2+H, Urine WBC (Auto) 76H, Urine RBC (Auto) 2, Urine Hyaline Casts (Auto) 0, Urine Bacteria (Auto) 1+H, Urine Squamous Epithelial Cells 1, Urine Mucus (Auto) SMALL, Urine Sperm (Auto) , Urine Random Creatinine 48.5, Urine Random Total Protein 34.9H, Urine Random Sodium 47 CBC/BMP Laboratory Tests 06/06/19 15:13 Red Blood Count 4.98, Mean Corpuscular Volume 87.1, Mean Corpuscular Hemoglobin 30.5, Mean Corpuscular Hemoglobin Concent 35.0, Red Cell Distribution Width 12.9, Neutrophils (%) (Auto) 92.4 H, Lymphocytes (%) (Auto) 2.6 L, Monocytes (%) (Auto) 4.1, Eosinophils (%) (Auto) 0.0, Basophils (%) (Auto) 0.2, Neutrophils # (Auto) 19.2 H, Lymphocytes # (Auto) 0.6 L, Monocytes # (Auto) 0.9 H, Eosinophils # (Auto) 0.0, Basophils # (Auto) 0.0 06/06/19 16:41 Calcium Level 7.9 L 06/07/19 05:53 Red Blood Count 4.16, Mean Corpuscular Volume 90.1, Mean Corpuscular Hemoglobin 30.5, Mean Corpuscular Hemoglobin Concent 33.9, Red Cell Distribution Width 13.5, Calcium Level 7.1 L, Aspartate Amino Transf (AST/SGOT) 32, Alanine Aminotransferase (ALT/SGPT) 27, Alkaline Phosphatase 53, Total Bilirubin 0.4, Total Protein 6.0 #L, Albumin 3.2 # Microbiology Microbiology 06/07/19 Urine Culture, Received Pending JOSÉ MARTINEZ MD Jun 07, 2019 11:36
[2019-06-07] MEDS: valACYclovir HCL 500 MG TAB PO SCH (20:21)
[2019-06-08] VITALS (9 sets, daily range): BP systolic 121–134; BP diastolic 62–87
[2019-06-08] MEDS: LR 1,000 ML IV SCH ×2 (02:31→06:30)
[2019-06-08 05:32] LABS: BLOOD UREA NITROGEN 22 MG/DL (7-18); CALCIUM LEVEL 7.9 MG/DL (8.5-10.1); CARBON DIOXIDE LEVEL 23 MEQ/L (21-32); CHLORIDE LEVEL 114 MEQ/L (98-107); CREATININE FOR GFR 0.94 MG/DL (0.55-1.30); GLOMERULAR FILTRATION RATE > 60.0 (>51); GLUCOSE, FASTING 87 MG/DL (70-100); POTASSIUM SERUM 3.3 MEQ/L (3.5-5.1); SODIUM LEVEL 144 MEQ/L (136-145); TROPONIN I 0.96 NG/ML (< 0.10)
[2019-06-08] MEDS ORDERED: POTASSIUM CHLORIDE 10 MEQ SR TABLET PO ONE (08:00)
[2019-06-08] MEDS ORDERED: ASPIRIN 325 MG TAB PO SCH (09:00)
[2019-06-08] MEDS: valACYclovir HCL 500 MG TAB PO SCH ×2 (09:04→22:13)
[2019-06-08] MEDS: FOLIC ACID 1 MG TAB PO SCH (09:04)
[2019-06-08] MEDS: MULTIVITAMINS/MINERALS THERAP 1 TAB PO SCH (09:04)
[2019-06-08] MEDS: HEPARIN SOD (PORCINE) 5000 UNITS/ML VIAL SC SCH ×2 (09:04→22:13)
[2019-06-08] MEDS: THIAMINE 100 MG TAB PO SCH ×2 (09:04→22:13)
--- NOTE | 2019-06-08 11:04 | IPNPDOC ---
Date Seen The patient was seen on 06/08/19. Progress Note SUBJECTIVE: 53 Y female, history of depression and suicidal attempt in the past admitted for drug overdose and suicidal attempt again no events overnight she is feeling better Review of systems no fever no chills no GODINEZ no chest pain no abdominal pain no diarrhea +right face OBJECTIVE PHYSICAL EXAMINATION: VITAL SIGNS: Please see below. GENERAL: AA Ox3, not in acute distress, 1 to 1 sitter at bedside HEENT: Atraumatic CARDIOVASCULAR: S1S2, regular, no murmur RESPIRATORY: clear, no wheezing, no rales ABDOMINAL: soft BS positive, non tender EXTREMITIES: non edema NEUROLOGICAL: non focal PSYCHOLOGICAL: depressed but no acute psychosis Skin: there are severe blisters rash in the mid left face close to nose LABORATORY DATA, IMAGING STUDIES, MICROBIOLOGY: Please see below. Echocardiogram: pending ASSESSMENT AND PLAN: 1. Depression and suicidal attempt with drug overdose (nsaids and diphenhyd ramine) will continue supportive care will continue 1 to 1 sitter Psych did not see her yesterday and I called Dr Abbott again today 2. 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 leukocytosis/lactic acidosis, No evidence of infection resolved 4. Shingles in right face, on Valtrex for 7 days 5. acute renal failure, resolved, will d/c IVF 6. Dispo: psych evaluation and furniture maker consult pending VS, I&O, 24H, Fishbone Vital Signs/I&O Vital Signs Date Time Temp Pulse Resp B/P (MAP) Pulse Ox O2 Delivery O2 Flow Rate FiO2 06/08/19 08:00 90 134/81 06/08/19 08:00 99.1 18 96 06/07/19 08:11 Room Air 06/07/19 06:00 1.0 I&O- Last 24 Hours up to 6 AM 06/08/19 06:00 Intake Total 4700 ml Output Total 0 ml Balance 4700 ml Laboratory Data 24H LABS Laboratory Tests 2 06/08/19 04:47: Anion Gap 7L, Glomerular Filtration Rate > 60.0, Blood Urea Nitrogen 22H, Creatinine 0.94, Sodium Level 144, Potassium Level 3.3L, Chloride Level 114H, Carbon Dioxide Level 23, Calcium Level 7.9L, Troponin I 0.96#H CBC/BMP Laboratory Tests 06/08/19 04:47 Calcium Level 7.9 L Microbiology Microbiology 06/07/19 Urine Culture, Received Pending JOSÉ MARTINEZ MD Jun 08, 2019 11:04
[2019-06-08 11:32] LABS: CHOLESTEROL LEVEL 166 MG/DL (<200); CHOLESTEROL RISK RATIO 2.213 (<5); HDL CHOLESTEROL 75 MG/DL (>40); LDL CHOLESTEROL 76 MG/DL (<100); NON-HDL-C 91 MG/DL; TRIGLYCERIDES LEVEL 77 MG/DL (<150)
--- NOTE | 2019-06-08 11:52 | CR ---
DATE OF CONSULTATION: 06/08/2019 REASON FOR CONSULTATION: Elevated troponin levels. HISTORY OF PRESENT ILLNESS: Ms. Farnsworth is a 53-year-old female who presented to the emergency department after drinking as much as 12 beers, part of a bottle of wine and taking a handful of Aleve. 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 She began feeling nauseated and vomiting, which prompted her visit to the emergency department. Yesterday she began feeling chest pressure with radiation to her neck that would last a couple of minutes on and off for several hours. This occurred for several hours and was relieved with rest. She had no other associated symptoms other than the nausea and vomiting stated previously. She states that similar episodes of chest pressure happened in the past, but usually only in very acute stressful situations where she received bad family news. She states that she has had five family members in the past 5 years for a number of reasons. During the episode, she denied any headache, dizziness, lightheadedness, vision changes, or difficulty breathing. She presently denies those symptoms as well as wheezing, coughing, fevers, chills, muscle aches, joint pain, rashes, lesions, abdominal pain, difficulty urinating, difficulty making stool, diarrhea or constipation. She reports no blood in her vomit. PAST MEDICAL HISTORY: 1. History of endometriosis. 2. Shingles. PAST SURGICAL HISTORY: 1. Hysterectomy in 2008. 2. Left knee surgery revision, including ACL, MCL and meniscus repair. 3. Breast implants in 2012. 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 She smokes infrequently, one or two cigarettes per month. No regular alcohol usage. She states that she has only had one beer in the last 6 months. No pets at home. No recent travel. PHYSICAL EXAMINATION: VITAL SIGNS: Temperature 99.1, pulse 90, respiratory rate 18, blood pressure 134/81, pulse oximetry 96% on room air. GENERAL APPEARANCE: She is a well appearing female who appears her stated age. She is resting comfortably in bed. HEENT: Head is normocephalic, atraumatic. She does have a patch over the right side of her face that is shingles. Extraocular muscles intact. Sclerae nonicteric. Mucous membranes moist. No pharyngeal erythema. NECK: No carotid bruits. CARDIOVASCULAR: Regular rate and rhythm. Normal S1, S2. No murmurs, gallops or rubs. RESPIRATORY: Clear to auscultation with full breath sounds bilaterally. No wheezes, crackles or rhonchi. ABDOMEN: Soft, nontender, nondistended. Bowel sounds present. EXTREMITIES: Multiple scratches and scrape bhatia over bilateral lower extremities and upper extremities. She states that these are from running through bushes. No peripheral edema or signs of cyanosis. 2+ radial and dorsalis pedis pulses in bilateral upper and lower extremities. NEUROLOGIC: No focal deficits present on examination. LABORATORIES: White blood cell count 10.9, hemoglobin 12.7, hematocrit 37.5, platelet count 220. Sodium 144, potassium 3.3, chloride 114, carbon dioxide 23, BUN 22, creatinine 0.94, glucose 87, calcium 7.9, troponin 0.96. UA shows 1+ blood, 2+ leukocyte esterase, 76 white blood cells, 1+ urine bacteria. Urine culture pending. IMAGING: Negative noncontrast head CT. Chest x-ray showed mild stable chronic findings without acute infiltrates. Electrocardiogram (EKG) from 06/06/2019 shows sinus tachycardia with left axis deviation and nonspecific T wave abnormalities in I, AVL, V3 through V6. [place] interval is normal. QRS is normal. QTC is prolonged at 546. ASSESSMENT AND PLAN: 1. Elevated troponins. Although the patient has had episodes of chest pressure in the past, this one seemed different in that it is not necessarily brought on by an acute stressful event and seemed to occur intermittently over the course of several hours during her initial stay. Her elevated troponin of 3.87 is of concern, as is her EKG with her nonspecified T wave findings and QTC prolongation. Also of concern is her family history with at least three members of her family passing away from heart attacks at relatively young ages. At this time we will discontinue Zofran, she should not be receiving any QT prolonging agents. We will start her on aspirin 325 mg once daily and draw a lipid panel to see if she shows any signs of hyperlipidemia. Otherwise, we will wait for the results of the echocardiogram to see if it shows any abnormalities. If that is negative, we may proceed forward with a catheterization, either on transfer or on an outpatient basis. For now, she should not be off telemetry in light of these findings since we do not want to miss any episodes of ischemia. MTDD
[2019-06-08] MEDS: FAMOTIDINE IV BAG 20 MG in APPROPRIATE DILUENT 1 EA IV SCH ×2 (12:13→23:58)
--- NOTE | 2019-06-08 16:28 | MHCRPDOC ---
[facility] Consultation Consultation DATE OF CONSULTATION: 06/08/19 CONSULTATION REQUESTED BY: Dr. Martinez REASON FOR CONSULTATION: s/p OD RELEVANT HISTORY: Per medical admit note: "53F with hx of depression, etoh abuse, previous suicide attempts (most recently drinking antifreeze) who presents after an apparent overdose. 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 She reports yesterday she drank 12 beers, a bottle of wine, and took a bottle alleve pm. She has been nauseous since and vomited today prompting her to come to the ED. She reports she hasn't been drinking much recently prior to yesterday but has had etoh withdrawal in the past. She denies chest pain and sob. 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 Pt continues to endorse depressed mood due to stress from work, family, and multiple loses overtime of close family members. Pt denies current SI/HI, hallucinations, delusions and states she'd like to go home but told pt that will not be discharged home due to psych history of major, life threatening SA. PAST PSYCHIATRIC HISTORY: Depression, ICU then transferred to [facility] once medical stable after ingesting ethylene glycol as SA 12/07/18 PAST MEDICAL HISTORY: ICU for ethylene glycol ingestion currently on contact precautions for shingles FAMILY HISTORY: No pertinent family hx PERSONAL AND SOCIAL HISTORY: The patient was born and raised in [place]. Resides in: [place] Marital Status: D Children:1 son and 1 daughter (estranged from daughter) [place]: [employer] [place] [employer] [facility] [employer] SUBSTANCE ABUSE HISTORY: Smoker: current smoker Alcohol: heavy in past but currently denies drinking regularly, did drink when she took OD of alleve Drugs: denies LEGAL HISTORY: denies MENTAL STATUS EXAMINATION: Patient is a 53-year old female, who is in hosp gown in bed with 1:1 sitter Speech is reg rate, rhythm, volume Language skills are average. Thought processes including: linear and logical Thought content: depressed, denies SI/HI Abstract reasoning, and computation: intact, appropriate Description of associations: appropriate Description of abnormal or psychotic thoughts: denies Judgment: poor Insight: poor Orientation to x3 Recent and remote memory: intact Attention span and concentration: good Language: appropriate Fund of knowledge: average Mood: "better" Affect: euthymic, anxious DIAGNOSIS: 1. MDD w/o psychosis 2. alcohol use d/o 3. borderline personality d/o PLAN: 1. await shingles testing and negative results need 2. continue on 1:1 3. no beds on [facility] Vital Signs Vital Signs Date Time Temp Pulse Resp B/P (MAP) Pulse Ox O2 Delivery O2 Flow Rate FiO2 06/08/19 14:15 97.5 95 17 130/73 (92) 98 06/07/19 08:11 Room Air 06/07/19 06:00 1.0 Laboratory Data 24H Labs Laboratory Tests 2 06/08/19 04:47: Anion Gap 7L, Glomerular Filtration Rate > 60.0, Calcium Level 7.9L, Troponin I 0.96#H, Triglycerides Level 77, LDL Cholesterol 76, Total Cholesterol 166, Non- HDL Cholesterol (LDL + VLDL) 91, Total HDL Cholesterol 75, Cholesterol/HDL Ratio 2.213 Home Medications Current Medications Current Medications Aspirin (Aspirin) 325 mg DAILY PO Last administered on 06/08/19at 12:13; Start 06/08/19 at 09:00 Famotidine 20 mg/ IV Miscellaneous Supplies 50 ml @ 100 mls/hr Q12H IV Last administered on 06/08/19at 12:13; Start 06/06/19 at 23:00 Folic Acid (Folic Acid) 1 mg DAILY PO Last administered on 06/08/19at 09:04; Start 06/07/19 at 09:00 Heparin Sodium (Porcine) (Heparin) 5,000 units Q12H SC Last administered on 06/08/19at 09:04; Start 06/07/19 at 09:00 Home Med (Med Rec Complete!) ASDIRECTED XX ; Start 06/06/19 at 18:45; Stop 06/06/19 at 18:49; Status DC Lactated Ringer's 1,000 ml @ 125 mls/hr Q8H IV Last administered on 06/08/19at 02:31; Start 06/06/19 at 22:30; Stop 06/08/19 at 08:06; Status DC Lorazepam (Ativan) 2 mg ASDIRECTED PRN PO SEE PROTOCOL Last administered on 06/06/19at 23:23; Start 06/06/19 at 22:45 Multivitamins (Theragram-M) 1 tab DAILY PO Last administered on 06/08/19at 0 9:04; Start 06/07/19 at 09:00 Ondansetron HCl (ZOFRAN INJection) 4 mg Q4HP PRN IV NAUSEA OR VOMITING; Start 06/06/19 at 22:45; Status Cancel Sodium Chloride 1,000 ml @ 150 mls/hr Q6H40M IV Last administered on 06/06/19at 16:16; Start 06/06/19 at 16:06; Stop 06/06/19 at 22:36; Status DC Thiamine HCl (Thiamine HCl) 100 mg BID PO Last administered on 06/08/19at 09:04; Start 06/07/19 at 09:00; Stop 06/09/19 at 21:01 Valacyclovir HCl (Valtrex) 1,000 mg BID PO Last administered on 06/08/19at 09:04; Start 06/07/19 at 21:00; Stop 06/14/19 at 09:01 Scheduled Cyanocobalamin (Vitamin B-12) (Vitamin B-12) 1,000 Mcg Tablet, 1,000 MCG PO DAILY, (Reported) Vitamin B Complex (Vitamin B Complex) 1 Each Tablet, 1 TAB PO DAILY, (Reported) Vitamin D (Vitamin D3) 1,000 Unit Tablet, 1,000 UNITS PO DAILY, (Reported) Allergies Coded Allergies: No Known Allergies (Verified , 12/06/18) ANTOINETTE GARDINER DO Jun 08, 2019 15:22
[2019-06-08] MEDS ORDERED: ATORVASTATIN 20 MG TAB PO SCH (21:00)
[2019-06-08] MEDS: METOPROLOL TART 25 MG TABLET PO SCH (22:12)
[2019-06-08] MEDS: TICAGRELOR 90 MG TABLET (BRILINTA) PO SCH (22:13)
--- NOTE | 2019-06-08 22:33 | CR ---
DATE: 06/08/2019 ADDENDUM: Consultation note of Dr. Alberto Warren. We were asked by Dr. Martinez to see Ms. Farnsworth regarding her cardiac condition. She came with alcohol and drug overdose, which probably demonstrated suicidal attempt. As a complication, she was noted to have elevated troponin on admission. The initial one was 3.87 with total CK 398, CK-MB 24 and relative index 6.1. The troponin has been trending down since. She otherwise has evidence for evolution on ECG with deep precordial T-wave inversions and an echocardiogram that was performed yesterday reveals anterior apical akinesis. Overall, ejection fraction was only mildly reduced. The study was interpreted by Dr. Ayala but it has not been transcribed yet and this interpretation is based on my own review of her echocardiogram. Overall, she is doing quite well, and she denies any recurrence of chest discomfort today or yesterday, but reports fairly longstanding history of chest discomfort dating back at least several months. The differential diagnosis includes principally two conditions; either she suffered anterior apical myocardial infarction or she had so-called stress-induced cardiomyopathy. Unfortunately, these conditions cannot be without invasive angiogram. I do recommend that she is transferred to [place] for angiography ideally tomorrow. In the interim, I will add Brilinta to her current aspirin, will give her low-dose beta rosa and high-dose statin. She will be monitored on telemetry and it is my recommendation that she is transferred to progressive care unit. I had a long discussion with her and her son regarding the rationale for this decision. She is in agreement with the plan. For the rest of her history and details of her physical exam and evaluation, please see Dr. Warren's note.
[2019-06-09] MEDS ORDERED: PROMETHAZINE INJ 25 MG/ML VIAL (J2550) IV PRN (00:30)
[2019-06-09] MEDS ORDERED: LORazepam 2 MG/ML VIAL (J2060) IV STA (03:38)
[2019-06-09] MEDS ORDERED: PROMETHAZINE INJ 25 MG/ML VIAL (J2550) IV ONE (03:45)
[2019-06-09 04:00] VITALS: BP 149/68
--- NOTE | 2019-06-09 06:07 | ECGEPIP ---
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
[2019-06-09 08:00] VITALS: BP 123/70
[2019-06-09] MEDS: HEPARIN SOD (PORCINE) 5000 UNITS/ML VIAL SC SCH (08:40)
[2019-06-09 08:41] VITALS: BP 123/70
[2019-06-09] MEDS: MULTIVITAMINS/MINERALS THERAP 1 TAB PO SCH (08:41)
[2019-06-09] MEDS: METOPROLOL TART 25 MG TABLET PO SCH (08:41)
[2019-06-09] MEDS: THIAMINE 100 MG TAB PO SCH (08:41)
[2019-06-09] MEDS: FOLIC ACID 1 MG TAB PO SCH (08:41)
[2019-06-09] MEDS: TICAGRELOR 90 MG TABLET (BRILINTA) PO SCH (08:42)
[2019-06-09] MEDS: valACYclovir HCL 500 MG TAB PO SCH (08:42)
--- NOTE | 2019-06-09 08:43 | IPNPDOC ---
Subjective Date Seen The patient was seen on 06/09/19. Subjective Chief Complaint/HPI Patient seen this AM prior to her transfer to [facility] for a Cath. She admits to experiencing episodes of difficulty breathing and palpitations overnight. She states she also had heartburn after taking several of her medications last night. Constitutional: Denies: Chills, Fever Genitourinary: Denies: Frequency Objective Physical Examination General Exam: Positive: Alert, Cooperative, No Acute Distress Eye Exam: Positive: Conjunctiva & lids normal, EOMI; Negative: Sclera icteric ENT Exam: Positive: Atraumatic, Mucous membr. moist/pink, Pharynx Normal Neck Exam: Negative: JVD Chest Exam: Positive: Clear to auscultation, Normal air movement Heart Exam: Positive: Rate Normal, Regular Rhythm, Normal S1, Normal S2; Negative: Murmurs, Rubs Abdomen Exam: Positive: Normal bowel sounds Extremity Exam: Negative: Clubbing, Cyanosis, Edema Skin Exam: Positive: Nl turgor and temperature; Negative: Breakdown, Lesion Neuro Exam: Positive: Normal Gait, Normal Speech Psych Exam: Positive: Mental status NL, Memory Intact, Oriented x 3 Assessment /Plan Assessment 1. Stress Induced Cardiomyopathy vs NSTEMI Patient to be transferred to [facility] this AM to undergo catheterization. Patients questions were answered regarding risks and how the procedure was performed. She confirmed that she was still interested in proceeding forward. We also meron a CBC and BMP for pre-op lab work prior to her catheterization and s kamla she was recently started on Brilinta. Plan/VTE VTE Prophylaxis Ordered?: Yes VS, I&O, 24H, Fishbone Vital Signs/I&O Vital Signs Date Time Temp Pulse Resp B/P (MAP) Pulse Ox O2 Delivery O2 Flow Rate FiO2 06/09/19 08:00 98.1 91 18 123/70 (87) 95 06/07/19 08:11 Room Air 06/07/19 06:00 1.0 I&O- Last 24 Hours up to 6 AM 06/09/19 06:00 Intake Total 1006 ml Output Total 1250 ml Balance -244 ml Laboratory Data Microbiology Microbiology 06/07/19 Urine Culture - Final, Complete Escherichia Coli GME ATTESTATION GME ATTESTATION My faculty preceptor for this patient encounter was physically present during the encounter and was fully available. All aspects of the patient interview, examination, medical decision making process, and medical care plan development were reviewed and approved by the faculty preceptor. The faculty preceptor is aware and concurs with the plan as stated in the body of this note and will attest to such by his/her cosignature. JOSE ANGEL PUENTE DO Jun 09, 2019 08:43
[2019-06-09 08:44] LABS: HEMATOCRIT 38.1 % (36.0-47.0); HEMOGLOBIN 13.5 g/dl (12.0-15.5); MEAN CORPUSCULAR HGB CONC 35.4 g/dl (32.0-36.5); MEAN CORPUSCULAR VOLUME 84.7 fl (80.0-96.0); PLATELET COUNT, AUTOMATED 229 10^3/uL (150-450); WHITE BLOOD COUNT 5.9 10^3/uL (4.0-10.0)
[2019-06-09] MEDS ORDERED: ASPIRIN 81 MG ENTERIC TAB PO SCH (09:00)
[2019-06-09 09:13] LABS: BLOOD UREA NITROGEN 13 MG/DL (7-18); CALCIUM LEVEL 8.4 MG/DL (8.5-10.1); CARBON DIOXIDE LEVEL 22 MEQ/L (21-32); CHLORIDE LEVEL 106 MEQ/L (98-107); CREATININE FOR GFR 0.78 MG/DL (0.55-1.30); GLOMERULAR FILTRATION RATE > 60.0 (>51); GLUCOSE, FASTING 91 MG/DL (70-100); SODIUM LEVEL 139 MEQ/L (136-145)
[2019-06-09 09:20] VITALS: BP 128/74
[2019-06-09] MEDS ORDERED: POTASSIUM CHLORIDE 10 MEQ SR TABLET PO ONE (09:30)
[2019-06-09] MEDS ORDERED: KCL 10MEQ/100ML SWI (KRUN) 10 MEQ in APPROPRIATE DILUENT 1 EA IV ONE (09:30)
--- NOTE | 2019-06-09 09:31 | ECHO ---
DATE OF PROCEDURE: 06/07/2019 REFERRING PROVIDER: Dr. Joey Donovan. REASON FOR ECHOCARDIOGRAM: Abnormal EKG. 2D MEASUREMENTS: IVS 1.2 cm LV 4.3 cm LVPW 1.2 cm LA 3.8 cm Aorta 3.2 cm IVC 1.6 cm DOPPLER MEASUREMENT: Peak velocity across the aortic valve 0.9 m/s Peak velocity across the LVOT: 0.6 m/s Mitral E 0.89 Mitral A 0.74 with a ratio of 1.2. Maximum tricuspid velocity 2.9 m/d 2D COMMENTS: 1. Normal left ventricular size and wall thickness with a low normal global left ventricular systolic function. The estimated left ventricle systolic pressure is about 50%. There was hyperkinesis in the mid and basal portion of the left ventricle. 2. Normal left atrium. Normal right atrium and left ventricle. 3. The atrial septum appeared to be normal without evidence of defect or shunt. 4. Normal aortic root. 5. No pericardial effusion seen. 6. The aortic valve, mitral valve, tricuspid valve, and pulmonic valve appear to be normal. The proximal pulmonary artery branches were not well visualized. 7. The inferior vena cava was normal in size. Central venous pressure is probably normal. DOPPLER: It detects mild mitral regurgitation, mild tricuspid regurgitation, and trace pulmonic regurgitation. The calculated pulmonary artery systolic pressure varies between 30-40 mmHg. Abnormal relaxation pattern was noted across the mitral valve annulus. Left ventricle and diastolic pressure might be elevated. IMPRESSION: 1. Low normal global left ventricular systolic function with abnormalities involving the apex. There are some features of left ventricular diastolic dysfunction as mentioned above. 2. Mild mitral regurgitation. 3. Mild tricuspid regurgitation with mild pulmonary hypertension. 4. The study was technically limited due to poor acoustic window.
--- NOTE | 2019-06-09 09:45 | DS.PDOC ---
Discharge Summary General Date of Admission Jun 06, 2019 at 22:15 Date of Discharge 06/09/19 Attending Physician: JOSÉ MARTINEZ MD Specialist/Consultants Involve: Rema Russell MD Specialist/Consultants Involve psych Discharge Summary PROCEDURES PERFORMED DURING STAY: [None]. ADMITTING DIAGNOSES: 1. ETOH abuse 2. suicidal attempt/OD 3. NSTEMI 4. Borderline personality disorder DISCHARGE DIAGNOSES: 1. ETOH abuse 2. suicidal attempt/OD 3. NSTEMI 4. Borderline personality disorder 5. Right face shingle COMPLICATIONS/CHIEF COMPLAINT: Overdose. HISTORY OF PRESENT ILLNESS: 53f with hx of depression, etoh, previous suicide attempts (most recently drinking antifreeze) who presents for an apparent overdose. 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 She reports yesterday she drank 12 beers, a bottle of wine, and took a bottle alleve pm. She has been nauseous since and vomitted today prompting her to come to the ED. She reports she hasnt been drinking much recently prior to yesterday but has had etoh withdrawal in the past. She denies chest pain and sob. She admits wanting to kill herself yesterday but states today she does not want to harm herself HOSPITAL COURSE: After admission, she was treated supportively including IVF and ativan; she was on 1 to 1 sitter; she was consulted with psychiatric service and she is waiting for inhospital mental health bed; in the ER, her troponin was up to 3.5 and then trending down; she did not have chest pain and did not have cardiac risk factors; she was consulted with staff nurse anesthetist and underwent for echo which showed anterial wall abnormal movement and recommended to transfer her to [facility] for cardiac cath; she either has NSTEMI or stress-induced cardiomyopathy. now she is medically stable. In addition, she was found to have right face shingles which is treated with oral Valtrex. DISCHARGE MEDICATIONS: Please see below. ALLERGIES: Please see below. PHYSICAL EXAMINATION ON DISCHARGE: VITAL SIGNS: Please see below. GENERAL: AA Ox4, not in distress HEENT: atraumatic NECK: NO JVD CARDIOVASCULAR EXAMINATION: S1 S2 regular no murmur RESPIRATORY EXAMINATION: clear, no wheezing no rales ABDOMINAL EXAMINATION: soft BS + non tender EXTREMITIES: no edema SKIN: right face rash+ NEUROLOGICAL EXAMINATION: non focal PSYCHIATRIC EXAMINATION: no psychosis LABORATORY DATA: Please see below. IMAGING: echo PROGNOSIS: fair ACTIVITY: [As tolerated]. DIET: regular DISPOSITION: transfer to [place], [place] DISCHARGE CONDITION: [Stable]. TIME SPENT ON DISCHARGE: Greater than 35 minutes. Vital Signs/I&Os Vital Signs Date Time Temp Pulse Resp B/P (MAP) Pulse Ox O2 Delivery O2 Flow Rate FiO2 06/09/19 09:20 98.3 87 18 128/74 (92) 98 06/07/19 08:11 Room Air 06/07/19 06:00 1.0 I&O- Last 24 Hours up to 6 AM 06/09/19 05:59 Intake Total 1756 ml Output Total 1250 ml Balance 506 ml Laboratory Data Labs 24H Laboratory Tests 2 06/09/19 08:25: Nucleated Red Blood Cells % (auto) 0.0, Anion Gap 11, Glomerular Filtration Rate > 60.0, Blood Urea Nitrogen 13, Creatinine 0.78, Sodium Level 139, Potassium Level 3.0L, Chloride Level 106, Carbon Dioxide Level 22, Calcium Level 8.4L CBC/BMP Laboratory Tests 06/09/19 08:25 Red Blood Count 4.50, Mean Corpuscular Volume 84.7, Mean Corpuscular Hemoglobin 30.0, Mean Corpuscular Hemoglobin Concent 35.4, Red Cell Distribution Width 12.8, Calcium Level 8.4 L Microbiology Microbiology 06/07/19 Urine Culture - Final, Complete Escherichia Coli Discharge Medications Scheduled Cyanocobalamin (Vitamin B-12) (Vitamin B-12) 1,000 Mcg Tablet, 1,000 MCG PO DAILY, (Reported) Vitamin B Complex (Vitamin B Complex) 1 Each Tablet, 1 TAB PO DAILY, (Reported) Vitamin D (Vitamin D3) 1,000 Unit Tablet, 1,000 UNITS PO DAILY, (Reported) Allergies Coded Allergies: No Known Allergies (Verified , 12/06/18) JOSÉ MARTINEZ MD Jun 09, 2019 09:45
[2019-06-10 14:16] LABS: HERPES ZOSTER, VARICELLA IgM 1.8 index (0.00-0.90)
== END 2019-06-09 10:01 | disposition short-term general hospital (02) | DRG 812 ==
LOC: M ED 14:50 → M ED INP 22:15 → M ICU 06-07 08:25 → M MSPAV 06-08 14:17 → M PCU 06-08 21:25
PROVIDERS: ADMIT Hospitalist; ATTEND Hospitalist
DX: T39.392A Poisoning by other nonsteroidal anti-inflammatory drugs [NSAID], intentional self-harm, initial encounter (principal); I21.4 Non-ST elevation (NSTEMI) myocardial infarction; N17.9 Acute kidney failure, unspecified; E87.2 Acidosis; B02.9 Zoster without complications; I51.81 Takotsubo syndrome; T45.0X2A Poisoning by antiallergic and antiemetic drugs, intentional self-harm, initial encounter; F10.10 Alcohol abuse, uncomplicated; F60.3 Borderline personality disorder; F17.200 Nicotine dependence, unspecified, uncomplicated; D72.829 Elevated white blood cell count, unspecified; Y92.009 Unspecified place in unspecified non-institutional (private) residence as the place of occurrence of the external cause

== ENCOUNTER → 2019-09-06 | Outpatient (CLI) | payer OTHER ==
[~2019-09-06] MED LIST changes: +CHOL100029 PO; +IBUP-1022 PO; +PROT1TAB2 PO; +VITA100018 PO; +VITATAB73 PO
[2019-09-06 09:37] LABS: HEMATOCRIT 42.1 % (36.0-47.0); HEMOGLOBIN 14.5 g/dl (12.0-15.5); MEAN CORPUSCULAR HEMOGLOBIN 30.7 pg (27.0-33.0); MEAN CORPUSCULAR HGB CONC 34.4 g/dl (32.0-36.5); MEAN CORPUSCULAR VOLUME 89.2 fl (80.0-96.0); PLATELET COUNT, AUTOMATED 286 10^3/uL (150-450); RED BLOOD COUNT 4.72 10^6/uL (4.00-5.40); WHITE BLOOD COUNT 4.3 10^3/uL (4.0-10.0)
[2019-09-06 10:13] LABS: ALBUMIN 3.8 GM/DL (3.2-5.2); ALT/SGPT 750 U/L (12-78); BILIRUBIN,TOTAL 0.4 MG/DL (0.2-1.0); BLOOD UREA NITROGEN 17 MG/DL (7-18); CALCIUM LEVEL 9.1 MG/DL (8.5-10.1); CARBON DIOXIDE LEVEL 23 MEQ/L (21-32); CHLORIDE LEVEL 110 MEQ/L (98-107); CREATININE FOR GFR 0.89 MG/DL (0.55-1.30); GLOMERULAR FILTRATION RATE > 60.0 (>51); GLUCOSE, FASTING 89 MG/DL (70-100); POTASSIUM SERUM 4.3 MEQ/L (3.5-5.1); SODIUM LEVEL 141 MEQ/L (136-145); TOTAL PROTEIN 7.1 GM/DL (6.4-8.2)
[2019-09-06 10:27] LABS: HEPATITIS B SURFACE ANTIGEN NEGATIVE (NEGATIVE)
[2019-09-06 10:55] LABS: HEPATITIS B CORE ANTIBODY IGM NEGATIVE (NEGATIVE); HEPATITIS C VIRUS ABY INDEX 0.2 INDEX (<0.8)
[2019-09-06 10:57] LABS: HEPATITIS A ANTIBODY IGM NEGATIVE (NEGATIVE)
[2019-09-06 11:12] LABS: HEMOGLOBIN A1c 5.4 %
== END ==
LOC: M LAB 08:33
PROVIDERS: ATTEND Family Medicine
DX: R53.83 Other fatigue (principal); D64.9 Anemia, unspecified; E03.9 Hypothyroidism, unspecified

== ENCOUNTER → 2019-12-04 | Outpatient (CLI) | payer OTHER ==
[2019-12-04 08:59] LABS: BASO # 0.1 10^3/uL (0.0-0.2); BASO % 1.3 % (0.0-1.0); EOS # 0.2 10^3/uL (0.0-0.5); EOS % 4.4 % (0.0-3.0); HEMATOCRIT 41.8 % (36.0-47.0); HEMOGLOBIN 14.2 g/dl (12.0-15.5); LYMPH # 1.3 10^3/uL (1.5-5.0); LYMPH % 28.1 % (24.0-44.0); MEAN CORPUSCULAR HEMOGLOBIN 30.7 pg (27.0-33.0); MEAN CORPUSCULAR VOLUME 90.3 fl (80.0-96.0); MONO # 0.5 10^3/uL (0.0-0.8); MONO % 10.3 % (0.0-5.0); NEUTROPHILS # 2.5 10^3/uL (1.5-8.5); NEUTROPHILS % 55.5 % (36.0-66.0); PLATELET COUNT, AUTOMATED 330 10^3/uL (150-450); RED BLOOD COUNT 4.63 10^6/uL (4.00-5.40); WHITE BLOOD COUNT 4.6 10^3/uL (4.0-10.0)
[2019-12-04 09:33] LABS: ALBUMIN 3.8 GM/DL (3.2-5.2); ALT/SGPT 58 U/L (12-78); BILIRUBIN,TOTAL 0.4 MG/DL (0.2-1.0); BLOOD UREA NITROGEN 17 MG/DL (7-18); CALCIUM LEVEL 9.4 MG/DL (8.5-10.1); CARBON DIOXIDE LEVEL 24 MEQ/L (21-32); CHLORIDE LEVEL 112 MEQ/L (98-107); CREATININE FOR GFR 0.91 MG/DL (0.55-1.30); GLOMERULAR FILTRATION RATE > 60.0 (>51); GLUCOSE, FASTING 83 MG/DL (70-100); POTASSIUM SERUM 4.4 MEQ/L (3.5-5.1); SODIUM LEVEL 143 MEQ/L (136-145); TOTAL PROTEIN 7.2 GM/DL (6.4-8.2)
--- NOTE | 2019-12-04 19:51 | REP ---
Clinical: Abnormal liver function tests. Technique: Real time hernandez scale ultrasound examination using curved array transducer. Findings: Liver and pancreas are normal in contour, size, echogenicity without focal hepatic or pancreatic lesion identified. Gallbladder is normal and without gallstones, wall thickening, or pericholecystic fluid. No biliary ductal dilatation is appreciated and the common bile duct measures 4 mm diameter. The right kidney is normal in reniform shape without hydronephrosis and measures 10.4 x 6.3 x 3.8 cm. No ascites in the visualized right upper quadrant. Impression: Normal liver and right upper quadrant ultrasound. Electronically Signed by Jonny Duke MD 12/04/2019 07:43 P
[2019-12-06 00:07] LABS: ANTI-MITOCHONDRIAL ANTIBODY <20.0 Units (0.0-20.0); ANTI-SMOOTH MUSCLE ANTIBODY 8 Units (0-19); ANTINUCLEAR ANTIBODIES DIRECT Negative (Negative); LIVER-KIDNEY MICROSOMAL ABY <20.1 Units (0.0-20.0)
== END ==
LOC: M RAD 07:58
PROVIDERS: ATTEND Internal Medicine Gastroenterology
DX: K76.89 Other specified diseases of liver (principal)

== ENCOUNTER → 2020-08-28 | Outpatient (CLI) | payer OTHER ==
[~2020-08-28] MED LIST changes: +CYCL-707 PO; -CYCL10TA PO; -FLUO20CA19 PO; +FLUO20CA22 PO
== END ==
LOC: M LABSMTC 12:27
PROVIDERS: ATTEND Pediatrics
DX: Z20.828 Contact with and (suspected) exposure to other viral communicable diseases (principal)

== ENCOUNTER → 2020-11-05 | Outpatient (CLI) | payer SELFPAY | LOC: M LABSMTC 09:02 | PROVIDERS: ATTEND Pediatrics | DX: Z11.59 Encounter for screening for other viral diseases (principal) ==

== ENCOUNTER → 2021-02-26 | Outpatient (CLI) | payer SELFPAY | LOC: M LABSMTC 14:21 | PROVIDERS: ATTEND Pediatrics | DX: Z11.52 Encounter for screening for COVID-19 (principal) ==

== ENCOUNTER → 2021-11-28 | Outpatient (REF) | LOC: M LABSMTC 13:08 | PROVIDERS: ATTEND Pediatrics | DX: Z20.828 Contact with and (suspected) exposure to other viral communicable diseases (principal) ==

== ENCOUNTER → 2024-02-03 | Outpatient (CLI) | payer OTHER ==
[~2024-02-03] MED LIST changes: +GASTROGRAFIN SOLUTION 30ML As Ordered ONE
== END ==
LOC: M RAD 10:10
PROVIDERS: ATTEND Surgery
DX: K57.20 Diverticulitis of large intestine with perforation and abscess without bleeding (principal); N20.0 Calculus of kidney; Z93.2 Ileostomy status; Z90.49 Acquired absence of other specified parts of digestive tract
CPT/HCPCS: 74176; Q9963

== ENCOUNTER → 2024-04-04 | Outpatient (CLI) | payer OTHER ==
[~2024-04-04] MED LIST changes: +LIQUID POLIBAR PLUS 105% w/v 750ML BTL As Ordered ONE
== END ==
LOC: M RAD 09:43
PROVIDERS: ATTEND Surgery
DX: K57.20 Diverticulitis of large intestine with perforation and abscess without bleeding (principal)
CPT/HCPCS: 74280; Q9963